=== PATIENT | male | born 1960 | race Caucasian/White ===

== ENCOUNTER → 2016-11-14 | Outpatient (CLI) | payer BC ==
[2016-11-14 15:50] LABS: ABSOLUTE BASOPHILS # (AUTO) 0.1 10^3/uL (0.0-0.2); ABSOLUTE EOSINOPHILS # (AUTO) 0.2 10^3/uL (0.0-0.6); ABSOLUTE LYMPHOCYTES (AUTO) 0.8 10^3/uL (0.5-4.7); ABSOLUTE MONOCYTES (AUTO) 0.5 10^3/uL (0.1-1.4); ABSOLUTE NEUT (AUTO) 3.4 10^3/uL (1.7-8.2); EOSINOPHILS % (AUTO) 3.3 % (0-6); HEMATOCRIT 31.3 % (37.9-51.0); HEMOGLOBIN 10.6 g/dL (13.5-17.0); HGB HCT DIFFERENCE 0.5; MEAN CORPUSCULAR HEMOGLOBIN 29.5 pg (27.0-33.4); MEAN CORPUSCULAR VOLUME 87 fl (80-97); MONOCYTES % (AUTO) 9.1 % (3-13); RED BLOOD COUNT 3.61 10^6/uL (4.35-5.55); RED CELL DISTRIBUTION WIDTH 12.9 % (11.5-14.0); SEGMENTED NEUTROPHILS % (AUTO) 68.6 % (42-78)
[2016-11-14 16:13] LABS: ANION GAP 12 (5-19); BLOOD UREA NITROGEN 41 mg/dL (7-20); CALCIUM 9.3 mg/dL (8.4-10.2); CARBON DIOXIDE 27 mmol/L (22-30); CHLORIDE 97 mmol/L (98-107); CREATININE RESULT 2.49 mg/dL (0.52-1.25); GLUCOSE 230 mg/dL (75-110); SODIUM 136.3 mmol/L (137-145)
[2016-11-16 11:40] LABS: CREATININE URINE 115.7 mg/dL (Not Estab.)
== END ==
LOC: OD 14:41
PROVIDERS: ATTEND Internal Medicine Nephrology
DX: N18.4 Chronic kidney disease, stage 4 (severe) (principal); D63.1 Anemia in chronic kidney disease; R80.9 Proteinuria, unspecified
CPT/HCPCS: 36415; 80048; 82570; 82728; 83036; 83540; 83550; 84156; 85025

== ENCOUNTER → 2017-01-05 | Outpatient (CLI) | payer BC ==
[2017-01-05 15:33] LABS: HEMATOCRIT 32.4 % (37.9-51.0); HEMOGLOBIN 10.9 g/dL (13.5-17.0); HGB HCT DIFFERENCE 0.3; MEAN CORPUSCULAR HGB CONC 33.6 g/dL (32.0-36.0); MEAN CORPUSCULAR VOLUME 89 fl (80-97); RED BLOOD COUNT 3.62 10^6/uL (4.35-5.55); RED CELL DISTRIBUTION WIDTH 14.1 % (11.5-14.0); WHITE BLOOD COUNT 4.5 10^3/uL (4.0-10.5)
== END ==
LOC: LAB 15:16
PROVIDERS: ATTEND Internal Medicine Nephrology
DX: N18.9 Chronic kidney disease, unspecified (principal)
CPT/HCPCS: 36415; 85027

== ENCOUNTER 2017-02-01 06:55 | Emergency (ER) | payer BC ==
[2017-02-01] MEDS ORDERED: DEXTROSE 50%-WATER 25 GM/50 ML DISP.SYRIN IV ONE ×2 (07:05→07:18)
--- NOTE | 2017-02-01 07:12 | ER Document Report ---
ED Blood Sugar Problem - General Mode of Arrival: Ambulatory Information source: Patient TRAVEL OUTSIDE OF THE [place] IN LAST 30 DAYS: No - HPI Onset: Just prior to arrival Onset/Duration: Persistent Insulin taken: Yes Associated symptoms: Confusion, Shakiness, Sweating Similar symptoms previously: Yes Recently seen / treated by doctor: Yes - General Stated Complaint: BLOOD SUGAR PROBLEMS Notes: Patient is a 56-year-old male that presents to the emergency department today with complaints of low blood glucose levels. Patient is well known to this emergency department for similar presentations of hypoglycemia. Patient states he was on his way to work today when he began feeling hypoglycemic. Patient states he took 17 units of NovoLog this morning without eating breakfast or checking his BGL. Patient states on his way to work, while riding in a taxi, he began feeling hypoglycemic and he ate a few three musketeer bars. Patient was brought to the emergency department by coworkers. Patient denies any chest pain , abdominal pain, vomiting, diarrhea, fevers, or cough. (MEGHNA MENDOZA) - Related Data Allergies/Adverse Reactions: No Known Allergies Allergy (Verified 02/17/16 18:00) Past Medical History - General Information source: Patient, [facility] Records - Social History Smoking Status: Never Smoker Cigarette use (# per day): No Frequency of alcohol use: None Drug Abuse: None Lives with: Family Family History: Reviewed & Not Pertinent - Past Medical History Cardiac Medical History: Reports: Hx Hypertension Endocrine Medical History: Reports: Hx Diabetes Mellitus Type 1 Renal/ Medical History: Reports: Hx End Stage Renal Disease - stage 3 Surgical Hx: Negative - Immunizations Hx Diphtheria, Pertussis, Tetanus Vaccination: No Review of Systems - Review of Systems Constitutional: See HPI, Other - low BGL EENT: No symptoms reported Cardiovascular: No symptoms reported Respiratory: No symptoms reported Gastrointestinal: No symptoms reported Genitourinary: No symptoms reported Male Genitourinary: No symptoms reported Musculoskeletal: No symptoms reported Skin: No symptoms reported Hematologic/Lymphatic: No symptoms reported Neurological/Psychological: See HPI, Confusion -: Yes All other systems reviewed and negative Physical Exam - Vital signs Vitals: Temp Pulse Resp BP Pulse Ox 97.5 F 91 20 172/94 H 100 02/01/17 07:42 02/01/17 07:42 02/01/17 07:42 02/01/17 07:42 02/01/17 07:42 - Notes Notes: Physical Exam: General: Confused, diaphoretic. HEENT: Normocephalic. Atraumatic. PERRL. Extraocular movements intact. Oropharynx clear. Neck: Supple. Non-tender. Respiratory: No respiratory distress. Clear and equal breath sounds bilaterally. Cardiovascular: Regular rate and rhythm. Abdominal: Normal Inspection. Non-tender. No distension. Normal Bowel Sounds. Back: Non-tender. No deformity or step off. Extremities: Moves all four extremities. Upper extremities: Normal inspection. Normal ROM. Lower extremities: Normal inspection. No edema. Normal ROM. Neurological: Confused, slightly slurred speech. Disoriented to date. Psychological: Unable to assess. Skin: Warm. Diaphoretic. Normal color. (MEGHNA MENDOZA) Course - Re-evaluation Re-evalutation: 02/01/17 08:10 Patient presented slightly confused with a blood sugar of 42. This patient is well-known to this emergency department for repeated visits for hypoglycemia. 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 The patient was given an amp of D50 normalized. He was able to tell us that he took a taxi to work this morning and that's when he started feeling lightheaded he ate 2 small Snickers. He said that he took 17 units of NovoLog this morning and had not checked his sugar nor had anything to eat. He reports this last happened about 2 weeks ago where he had come to the emergency department. Patient's clinical exam is largely unremarkable after the D50. He is requesting to leave without any workup. He reports this is happened multiple times before and he feels completely fine. His repeat blood sugar was 175. Patient is being discharged but has been counseled regarding checking his sugars and eating something prior to using his insulin in the morning. I have explained to patient that he was leaving without a complete period of observation and he acknowledged understanding and states that he just wants to get back to work. I have encouraged him to return to the ED for any reason or if any new or worrisome symptoms result. 02/01/17 17:19 (TRACE OSEI) - Vital Signs Vital signs: Temp Pulse Resp BP Pulse Ox 97.8 F 89 18 167/87 H 100 02/01/17 08:16 02/01/17 08:16 02/01/17 08:16 02/01/17 08:16 02/01/17 08:16 - Laboratory Laboratory results interpreted by me: 02/01/17 02/01/17 07:02 07:48 POC Glucose 42 L 175 H Discharge - Discharge Clinical Impression: Hypoglycemia Condition: Stable Disposition: HOME, SELF-CARE Instructions: Hypoglycemia ([facility]) Additional Instructions: You are requesting to leave the emergency department before we have had an appropriate period of time to evaluate you. Given that you have had multiple hypoglycemic episodes similar to this in the past, we are discharging you now, however should you have any recurrence of confusion, lightheadedness or any other new or worrisome symptoms, please return to emergency department immediately. It is extremely critical that you ensure you've have something to eat and check your blood sugar prior to taking insulin in the morning to avoid further episodes of hypoglycemia that result in an emergency department visit. Again, return at any time for any new or worrisome symptoms. Forms: Return to Work Referrals: RICHARD WHIPPLE MD [Primary Care Provider] - Follow up in 3-5 days Scribe Attestation: 02/01/17 07:58 I personally performed the services described in the documentation, reviewed and edited the documentation which was dictated to the scribe in my presence, and it accurately records my words and actions. (TRACE OSEI) Scribe Documentation - Scribe Written by Verónica:: Verónica Reynolds, 02/01/2017 0838 acting as scribe for :: Villareal
[2017-02-01 08:19] VITALS: BP 167/87
== END 2017-02-01 08:19 | disposition home or self-care (01) ==
LOC: ER 06:55
DX: E10.649 Type 1 diabetes mellitus with hypoglycemia without coma (principal); Z79.4 Long term (current) use of insulin; E10.22 Type 1 diabetes mellitus with diabetic chronic kidney disease; I12.9 Hypertensive chronic kidney disease with stage 1 through stage 4 chronic kidney disease, or unspecified chronic kidney disease; N18.3 Chronic kidney disease, stage 3 (moderate)
CPT/HCPCS: 99285; 96374; 82962; J3490

== ENCOUNTER → 2017-03-21 | Outpatient (CLI) | payer BC ==
[2017-03-21 15:11] LABS: ANION GAP 10 (5-19); BLOOD UREA NITROGEN 41 mg/dL (7-20); CALCIUM 8.9 mg/dL (8.4-10.2); CARBON DIOXIDE 27 mmol/L (22-30); CHLORIDE 98 mmol/L (98-107); CREATININE RESULT 2.81 mg/dL (0.52-1.25); GLUCOSE 135 mg/dL (75-110); POTASSIUM 5.2 mmol/L (3.6-5.0)
[2017-03-21 15:15] LABS: ABSOLUTE BASOPHILS # (AUTO) 0.1 10^3/uL (0.0-0.2); ABSOLUTE EOSINOPHILS # (AUTO) 0.1 10^3/uL (0.0-0.6); ABSOLUTE MONOCYTES (AUTO) 0.3 10^3/uL (0.1-1.4); ABSOLUTE NEUT (AUTO) 2.6 10^3/uL (1.7-8.2); BASOPHILS % (AUTO) 2.2 % (0-2); EOSINOPHILS % (AUTO) 3.2 % (0-6); HEMATOCRIT 33.3 % (37.9-51.0); HEMOGLOBIN 11.1 g/dL (13.5-17.0); LYMPHOCYTES % (AUTO) 23.4 % (13-45); MEAN CORPUSCULAR HEMOGLOBIN 29.7 pg (27.0-33.4); MEAN CORPUSCULAR HGB CONC 33.4 g/dL (32.0-36.0); MEAN CORPUSCULAR VOLUME 89 fl (80-97); MONOCYTES % (AUTO) 7.4 % (3-13); RED BLOOD COUNT 3.74 10^6/uL (4.35-5.55); RED CELL DISTRIBUTION WIDTH 13.7 % (11.5-14.0); SEGMENTED NEUTROPHILS % (AUTO) 63.8 % (42-78); WHITE BLOOD COUNT 4.1 10^3/uL (4.0-10.5)
[2017-03-21 15:40] LABS: URINE CREATININE 138.9 mg/dL (22-328); URINE PROTEIN 78.9 mg/dL (<12)
== END ==
LOC: LAB 14:37
PROVIDERS: ATTEND Internal Medicine Nephrology
DX: N18.4 Chronic kidney disease, stage 4 (severe) (principal); E10.9 Type 1 diabetes mellitus without complications; D63.1 Anemia in chronic kidney disease
CPT/HCPCS: 36415; 80048; 82570; 83036; 84156; 85025

== ENCOUNTER 2017-06-20 06:12 | Emergency (ER) | payer BC ==
[2017-06-20] MEDS ORDERED: DEXTROSE 50%-WATER 25 GM/50 ML DISP.SYRIN IV ONE ×2 (06:17→06:19)
--- NOTE | 2017-06-20 06:20 | ER Document Report ---
ED General - General Stated Complaint: BLOOD SUGAR PROBLEM Time Seen by Provider: 06/20/17 06:15 TRAVEL OUTSIDE OF THE [place] IN LAST 30 DAYS: No - HPI Patient complains to provider of: Hypoglycemia Notes: Patient coming in for evaluation of hypoglycemia. 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 Patient states took his Lantus this morning as he is supposed to patient states he did eat however patient was found by the kitchen staff to be slightly altered and diaphoretic patient was brought to the ER Accu-Chek showed patient blood sugar was 38. IV was established and patient was given an amp of dextrose. After administration that the patient feeling better and is requesting to go back to work. Denies any fever chills nausea vomiting denies any other symptoms at this time. - Related Data Allergies/Adverse Reactions: No Known Allergies Allergy (Verified 02/17/16 18:00) Past Medical History - Social History Smoking Status: Unknown if Ever Smoked Family History: Reviewed & Not Pertinent - Past Medical History Cardiac Medical History: Reports: Hx Hypertension Endocrine Medical History: Reports: Hx Diabetes Mellitus Type 1 Renal/ Medical History: Reports: Hx End Stage Renal Disease - stage 3 - Immunizations Hx Diphtheria, Pertussis, Tetanus Vaccination: No Review of Systems - Review of Systems Constitutional: Weakness EENT: No symptoms reported Cardiovascular: No symptoms reported Respiratory: No symptoms reported Gastrointestinal: No symptoms reported Genitourinary: No symptoms reported Male Genitourinary: No symptoms reported Musculoskeletal: No symptoms reported Skin: No symptoms reported Hematologic/Lymphatic: No symptoms reported Neurological/Psychological: No symptoms reported Physical Exam - Vital signs Interpretation: Normal - General General appearance: Appears well, Alert - HEENT Head: Normocephalic, Atraumatic Eyes: Normal Pupils: PERRL - Respiratory Respiratory status: No respiratory distress Chest status: Nontender Breath sounds: Normal Chest palpation: Normal - Cardiovascular Rhythm: Regular Heart sounds: Normal auscultation Murmur: No - Abdominal Inspection: Normal Distension: No distension Bowel sounds: Normal Tenderness: Nontender Organomegaly: No organomegaly - Back Back: Normal, Nontender - Extremities General upper extremity: Normal inspection, Nontender, Normal color, Normal ROM , Normal temperature General lower extremity: Normal inspection, Nontender, Normal color, Normal ROM , Normal temperature, Normal weight bearing. No: Julissa's sign - Neurological Neuro grossly intact: Yes Cognition: Normal Orientation: AAOx4 [place] Coma Scale Eye Opening: Spontaneous [place] Coma Scale Verbal: Oriented Farrah Coma Scale Motor: Obeys Commands [place] Coma Scale Total: 15 Speech: Normal Motor strength normal: LUE, RUE, LLE, RLE Sensory: Normal - Psychological Associated symptoms: Normal affect, Normal mood - Skin Skin Temperature: Warm Skin Moisture: Dry Skin Color: Normal Course - Re-evaluation Re-evalutation: 06/20/17 06:58 Patient was able to tolerate 2 glasses of orange juice and also received an amp of D50. Recheck the patient's blood sugar was 190. Patient did have a meal tray ordered from the cafeteria however patient is anxious to get back to work. Patient is supposed to eat his meal tray will return to cafeteria Accu-Chek showed blood sugar was 190 otherwise patient back to his baseline will discharge patient Discharge - Discharge Clinical Impression: Hypoglycemia Condition: Good Instructions: Hypoglycemia Diet ([facility]), Hypoglycemia ([facility]) Additional Instructions: Follow-up with your primary care physician
== END 2017-06-20 06:58 | disposition home or self-care (01) ==
LOC: ER 06:12
DX: E16.2 Hypoglycemia, unspecified (principal)
CPT/HCPCS: 99284; 96374; 82962; J3490

== ENCOUNTER → 2017-06-20 | Outpatient (CLI) | payer BC ==
[2017-06-20 08:57] LABS: ABSOLUTE BASOPHILS # (AUTO) 0.1 10^3/uL (0.0-0.2); ABSOLUTE EOSINOPHILS # (AUTO) 0.1 10^3/uL (0.0-0.6); ABSOLUTE LYMPHOCYTES (AUTO) 0.7 10^3/uL (0.5-4.7); ABSOLUTE MONOCYTES (AUTO) 0.3 10^3/uL (0.1-1.4); ABSOLUTE NEUT (AUTO) 3.8 10^3/uL (1.7-8.2); BASOPHILS % (AUTO) 1.7 % (0-2); EOSINOPHILS % (AUTO) 1.4 % (0-6); HEMATOCRIT 31.7 % (37.9-51.0); HGB HCT DIFFERENCE 1.3; LYMPHOCYTES % (AUTO) 14.8 % (13-45); MEAN CORPUSCULAR HEMOGLOBIN 30.8 pg (27.0-33.4); MEAN CORPUSCULAR HGB CONC 34.7 g/dL (32.0-36.0); MEAN CORPUSCULAR VOLUME 89 fl (80-97); MONOCYTES % (AUTO) 5.5 % (3-13); RED BLOOD COUNT 3.57 10^6/uL (4.35-5.55); RED CELL DISTRIBUTION WIDTH 13.5 % (11.5-14.0); SEGMENTED NEUTROPHILS % (AUTO) 76.6 % (42-78); WHITE BLOOD COUNT 4.9 10^3/uL (4.0-10.5)
[2017-06-20 09:13] LABS: ALBUMIN 4.2 g/dL (3.5-5.0); ANION GAP 9 (5-19); BLOOD UREA NITROGEN 41 mg/dL (7-20); CALCIUM 9.1 mg/dL (8.4-10.2); CARBON DIOXIDE 26 mmol/L (22-30); CHLORIDE 99 mmol/L (98-107); CREATININE RESULT 2.93 mg/dL (0.52-1.25); GLUCOSE 202 mg/dL (75-110); PHOSPHORUS 4.4 mg/dL (2.5-4.5); POTASSIUM 5.1 mmol/L (3.6-5.0); SODIUM 134.3 mmol/L (137-145)
[2017-06-20 09:22] LABS: URINE CREATININE 129.3 mg/dL (22-328); URINE PROTEIN 113.8 mg/dL (<12)
[2017-06-20 09:44] LABS: THYROID STIMULATING HORMONE 1.3 uIU/mL (0.47-4.68)
[2017-06-21 07:20] LABS: VITAMIN D 25-HYDROXY 21.7 ng/mL (30.0-100.0)
== END ==
LOC: LAB 08:21
PROVIDERS: ATTEND Internal Medicine Nephrology
DX: N18.4 Chronic kidney disease, stage 4 (severe) (principal); E10.9 Type 1 diabetes mellitus without complications; D63.1 Anemia in chronic kidney disease; N25.81 Secondary hyperparathyroidism of renal origin
CPT/HCPCS: 36415; 80048; 82040; 82306; 82570; 82728; 83036; 83540; 83550; 83970; 84100; 84156; 84439; 84443; 85025

== ENCOUNTER 2017-06-22 07:59 | Emergency (ER) | payer BC ==
--- NOTE | 2017-06-22 08:15 | ER Document Report ---
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 He has frequent episodes of hypoglycemia in the morning. He said that when he left for work this morning his sugar was 300 and he did not take any insulin today. His last Lantus dose was 15 units about 20 hours ago. He did not take any of his sliding scale Humalog yesterday or today. Patient was given food on arrival to the emergency room and is having no complaints at this time. He said that his sugars are difficult to control. Patient denies chest pain, shortness of breath, nausea, vomiting, focal numbness , weakness, headache or ataxia. TRAVEL OUTSIDE OF THE [place] IN LAST 30 DAYS: No - Related Data Allergies/Adverse Reactions: No Known Allergies Allergy (Verified 02/17/16 18:00) Past Medical History - General Information source: Patient - Social History Smoking Status: Current Every Day Smoker Chew tobacco use (# tins/day): No Frequency of alcohol use: None Drug Abuse: None Family History: Reviewed & Not Pertinent Patient has suicidal ideation: No Patient has homicidal ideation: No - Past Medical History Cardiac Medical History: Reports: Hx Hypertension Endocrine Medical History: Reports: Hx Diabetes Mellitus Type 1 Renal/ Medical History: Reports: Hx End Stage Renal Disease - stage 3. Denies : Hx Peritoneal Dialysis Surgical Hx: Negative - Immunizations Hx Diphtheria, Pertussis, Tetanus Vaccination: No Review of Systems - Review of Systems Notes: REVIEW OF SYSTEMS: CONSTITUTIONAL: -fevers, -chills EENT: -eye pain, -difficulty swallowing, -nasal congestion CARDIOVASCULAR:-chest pain, -syncope. RESPIRATORY: -cough, -SOB GASTROINTESTINAL: -abdominal pain, - nausea, -vomiting, -diarrhea GENITOURINARY: -dysuria, -hematuria MUSCULOSKELETAL: -back pain, -neck pain SKIN: -rash or skin lesions. HEMATOLOGIC: -easy bruising or bleeding. LYMPHATIC: -swollen, enlarged glands. NEUROLOGICAL: -altered mental status or loss of consciousness, -headache, - neurologic symptoms PSYCHIATRIC: -anxiety, -depression. ALL OTHER SYSTEMS REVIEWED AND NEGATIVE. Physical Exam - Vital signs Vitals: Pulse Resp BP Pulse Ox 76 20 193/88 H 100 06/22/17 08:07 06/22/17 08:07 06/22/17 08:07 06/22/17 08:07 - Notes Notes: PHYSICAL EXAMINATION: GENERAL: Well-appearing, well-nourished and in no acute distress. HEAD: Atraumatic, normocephalic. EYES: Pupils equal round and reactive to light, extraocular movements intact, sclera anicteric, conjunctiva are normal. ENT: nares patent, oropharynx clear without exudates. Moist mucous membranes. NECK: Normal range of motion, supple without lymphadenopathy LUNGS: Breath sounds clear to auscultation bilaterally and equal. No wheezes rales or rhonchi. HEART: Regular rate and rhythm without murmurs ABDOMEN: Soft, nontender, normoactive bowel sounds. No guarding, no rebound. No masses appreciated. EXTREMITIES: Normal range of motion, no pitting or edema. No cyanosis. NEUROLOGICAL: Cranial nerves grossly intact. Normal speech, normal gait. Normal sensory and motor exams. PSYCH: Normal mood, normal affect. SKIN: Warm, Dry, normal turgor, no rashes or lesions noted. Course - Re-evaluation Re-evalutation: Patient appears well and is AAO 4. He drank and ate food in the emergency room today and feels much better. He does not want to have his kidney function checked and is refusing as IV. 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 Patient said that his res counselor, Dr. Whipple, follows him for the diabetes and he will call her today for an appointment. Given strict return precautions and he understands. - Vital Signs Vital signs: Temp Pulse Resp BP Pulse Ox 76 20 193/88 H 100 06/22/17 08:07 06/22/17 08:07 06/22/17 08:07 06/22/17 08:07 Discharge - Discharge Clinical Impression: Hypoglycemia Hypertension Qualifiers: Hypertension type: unspecified Qualified Code(s): I10 - Essential (primary) hypertension Condition: Stable Additional Instructions: Hypoglycemia You have suffered an episode of hypoglycemia (low blood sugar). Typical symptoms of hypoglycemia are shaking, sweating, headache, and confusion. When severe, unconsciousness or seizure may occur. Hypoglycemia occurs when a person taking insulin or diabetes pills has a change in the amount of blood sugar available -- due to exercise, decreased food intake, or alcohol. Should you feel symptoms of hypoglycemia again, immediately take some form of sugar such as sweetened juice. As the reaction subsides, eat a complex carbohydrate such as bread. If possible, check your blood sugar using a chemical strip. If episodes are occurring without obvious explanation, contact your physician for further evaluation. Hypoglycemia Diet The physician has recommended a special diet for hypoglycemia. The goal of this diet is to keep a steady supply of food energy, without sudden jumps in blood sugar. Divide your daily calories into six small meals. Meals should be high in complex carbohydrates -- starchy foods. Avoid fats. Eat plenty of vegetables. Include protein from both plants (beans, peas) and animals (skim milk, fish, poultry). Plan for a small high-protein bedtime snack. Eat slowly and chew thoroughly. Avoid any foods which put a lot of sugar into your system suddenly. Drink water rather than large glasses of fruit juice. Don't drink sugar-containing soda pop, and NO CANDY. Slightly-sweet natural foods, such as sweet potato, apples, bananas, and carrots, usually cause no problems. Ketogenic diet, general information: The ketogenic diet is sometimes useful in children with intractable epilepsy (seizures that can't be controlled with medicine). The diet is high in fat, causing ketones and acids to build up in the blood stream. Combined with restriction of total calories, this mimics the effects of starvation. Somehow this helps prevent seizures in some patients. We don't recommend it as a replacement for anti-seizure medicine, but only when these medicines are failing. The ketogenic diet is complicated, and hard to coordinate with other family member's diets. There are potential complications, such as kidney stones , hypoglycemia, weakness, and muscle atrophy. Because of the difficulty " getting it right," we often start the diet in the hospital under the supervision of a fitness assistant. The usual ketogenic diet gets 80% of its calories from fat. The amount of fat may be varied depending on the child's response to the diet. (The proportion of fat to protein plus carbs is called the "ketogenic ratio." A diet that's 80% fat has a 4:1 ketogenic ratio.) Total calories per day are limited to 75% of the recommended calories for the child's age and IDEAL weight. Water intake is restricted to somewhat less than the usual "maintenance amount" -- about 3/4 of the recommended water intake. The diet generally avoids carbohydrates in order to get the child's Recommended Daily Allowance (LONG LINE TEAMSTER) of protein. A multivitamin and calcium supplement should be given daily. Urine is checked daily with ketone test-strips. Ketogenic diet, protocol: 1. Weigh the child in kilograms 2. Calculate total daily calories Under 1 yr: 80 Calories times weight in kg = total calories 1-3 yrs: 75 Calories times weight in kg = total calories 4-6 yrs: 68 Calories times weight in kg = total calories 7-10 yrs: 60 Calories times weight in kg = total calories 11 and up: 40-50 Calories times weight in kg = total calories 3. Calculate number of daily "dietary units" based on ketogenic ratio 2:1 ketogenic ratio: total daily calories divided by 22 = dietary units per day 3:1 ketogenic ratio: total daily calories divided by 31 = dietary units per day 4:1 ketogenic ratio: total daily calories divided by 40 = dietary units per day 5:1 ketogenic ratio: total daily calories divided by 49 = dietary units per day 4. Calculate grams of daily fat based on recommended ketogenic ratio 2:1 ketogenic ratio: 2 times number of dietary units = grams of fat per day 3:1 ketogenic ratio: 3 times number of dietary units = grams of fat per day 4:1 ketogenic ratio: 4 times number of dietary units = grams of fat per day 5:1 ketogenic ratio: 5 times number of dietary units = grams of fat per day 5. Get protein Recommended Daily Allowance (LONG LINE TEAMSTER) in grams age 0-6 months: 2 times weight in kg = grams of protein per day age 6-12 months: 1.5 times weight in kg = grams of protein per day age 1-3 years: 1.25 times weight in kg = grams of protein per day age 4 or older: 1 times weight in kg = grams of protein per day 6. Calculate allowed carbohydrate Dietary units per day minus protein allowance (LONG LINE TEAMSTER) = grams of carbohydrate per day 7. Divide total daily allowances into individual meals, keeping same ratio of fat to protein and carbohydrates. 8. Determine amount of allowed daily fluids. Weight less than 10 k/4 times weight in kg times 4 ml/hour times 24 hours = ml fluids per day Weight 10-20 k ml plus 3/4 times (weight - 10 kg) times 2 ml/hour times 24 hours = ml/day Weight over 20 k ml plus 3/4 times (weight - 20 kg) times 1 ml/ hour times 24 hours = ml/day 9. Add calcium supplement and multivitamin. Forms: Elevated Blood Pressure Referrals: RICHARD WHIPPLE MD [ACTIVE STAFF] - Follow up as needed
[2017-06-22] MEDS ORDERED: DEXTROSE 40% GEL 15 GM TUBE PO PRN (08:29)
[2017-06-22 09:02] VITALS: BP 145/80
== END 2017-06-22 09:05 | disposition home or self-care (01) ==
LOC: ER 07:59
DX: E10.649 Type 1 diabetes mellitus with hypoglycemia without coma (principal); I12.9 Hypertensive chronic kidney disease with stage 1 through stage 4 chronic kidney disease, or unspecified chronic kidney disease; E10.22 Type 1 diabetes mellitus with diabetic chronic kidney disease; N18.4 Chronic kidney disease, stage 4 (severe); F17.200 Nicotine dependence, unspecified, uncomplicated
CPT/HCPCS: 82962; 99285

== ENCOUNTER → 2017-07-25 | Outpatient (CLI) | payer BC, MEDICAID ==
[2017-07-25 22:12] LABS: HEMATOCRIT 30.3 % (37.9-51.0); HEMOGLOBIN 10.6 g/dL (13.5-17.0); HGB HCT DIFFERENCE 1.5; MEAN CORPUSCULAR HEMOGLOBIN 30.3 pg (27.0-33.4); MEAN CORPUSCULAR HGB CONC 34.8 g/dL (32.0-36.0); MEAN CORPUSCULAR VOLUME 87 fl (80-97); RED BLOOD COUNT 3.49 10^6/uL (4.35-5.55); RED CELL DISTRIBUTION WIDTH 13.5 % (11.5-14.0)
== END ==
LOC: OD 18:19
PROVIDERS: ATTEND Internal Medicine Nephrology
DX: N18.9 Chronic kidney disease, unspecified (principal)
CPT/HCPCS: 36415; 85027

== ENCOUNTER 2017-07-29 19:02 | Emergency (ER) | payer BC ==
[2017-07-29] MEDS ORDERED: DEXTROSE 50%-WATER 25 GM/50 ML DISP.SYRIN IV ONE (19:07)
--- NOTE | 2017-07-29 19:31 | ER Document Report ---
ED Blood Sugar Problem - General Chief Complaint: Low Blood Sugar Stated Complaint: BLOOD PRESSURE ISSUE Time Seen by Provider: 07/29/17 19:29 Notes: Patient is an insulin-dependent diabetic whose blood sugar is low. 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 He says he ate a turkey club sandwich and was just finishing it when he began to feel confused and became combative. He was given 50 mL of glucose IV and within a couple minutes he began to come around and answer questions appropriately. Patient says that he reports a 10 hour shift today instead of his usual 8 hours. Did eat, as mentioned the turkey club. However, during his episode, his blood sugar was checked and it was just 33. Patient normally takes 100 units of Lantus at bedtime and a sliding scale during the day. TRAVEL OUTSIDE OF THE [place] IN LAST 30 DAYS: No - Related Data Allergies/Adverse Reactions: No Known Allergies Allergy (Verified 02/17/16 18:00) Past Medical History - Social History Smoking Status: Unknown if Ever Smoked Chew tobacco use (# tins/day): No Frequency of alcohol use: None Drug Abuse: None Family History: Reviewed & Not Pertinent Patient has suicidal ideation: No Patient has homicidal ideation: No - Past Medical History Cardiac Medical History: Reports: Hx Hypertension Endocrine Medical History: Reports: Hx Diabetes Mellitus Type 1 Renal/ Medical History: Reports: Hx End Stage Renal Disease - stage 3 Surgical Hx: Negative - Immunizations Hx Diphtheria, Pertussis, Tetanus Vaccination: No Review of Systems - Review of Systems Constitutional: denies: Fever Cardiovascular: denies: Chest pain Respiratory: denies: Cough, Short of breath, Wheezing Physical Exam - Vital signs Vitals: Temp Pulse Resp BP Pulse Ox 97.8 F 91 16 188/96 H 100 07/29/17 19:10 07/29/17 19:10 07/29/17 19:10 07/29/17 19:10 07/29/17 19:10 Interpretation: Normal, Hypertensive - Mild - Notes Notes: PHYSICAL EXAMINATION: GENERAL: Combative and difficult to control and had to be held down by security to receive his IV glucose. After that, he awakened and was well-appearing, in no acute distress. HEAD: Atraumatic, normocephalic. EYES: Pupils equal round and reactive to light, extraocular movements intact. ENT: oropharynx clear without exudates. Moist mucous membranes. NECK: Normal range of motion, supple. LUNGS: Breath sounds clear and equal bilaterally. HEART: Regular rate and rhythm without murmurs. ABDOMEN: Soft, nontender. No guarding or rebound. EXTREMITIES: Normal range of motion without pain. NEUROLOGICAL: Normal speech, normal gait. Normal sensory, motor, and reflex exams. Awake, alert, and oriented x3. Cranial nerves normal. SKIN: Warm, dry, no rashes. Course - Vital Signs Vital signs: Temp Pulse Resp BP Pulse Ox 97.8 F 91 20 188/96 H 100 07/29/17 19:10 07/29/17 19:10 07/29/17 19:10 07/29/17 19:10 07/29/17 19:10 Discharge - Discharge Clinical Impression: Hypoglycemia Condition: Stable Disposition: HOME, SELF-CARE Additional Instructions: Hypoglycemia You have suffered an episode of hypoglycemia (low blood sugar). Typical symptoms of hypoglycemia are shaking, sweating, headache, and confusion. When severe, unconsciousness or seizure may occur. Hypoglycemia occurs when a person taking insulin or diabetes pills has a change in the amount of blood sugar available -- due to exercise, decreased food intake, or alcohol. Should you feel symptoms of hypoglycemia again, immediately take some form of sugar such as sweetened juice. As the reaction subsides, eat a complex carbohydrate such as bread. If possible, check your blood sugar using a chemical strip. If episodes are occurring without obvious explanation, contact your physician for further evaluation. FOLLOW-UP CARE: If you have been referred to a physician for follow-up care, call the physician s office for an appointment as you were instructed or within the next two days. If you experience worsening or a significant change in your symptoms, notify the physician immediately or return to the Emergency Department at any time for re-evaluation. Referrals: RICHARD WHIPPLE MD [Primary Care Provider] - Follow up as needed
[2017-07-29 19:42] VITALS: BP 188/96
== END 2017-07-29 19:46 | disposition home or self-care (01) ==
LOC: ER 19:02
DX: E10.649 Type 1 diabetes mellitus with hypoglycemia without coma (principal); Z79.4 Long term (current) use of insulin; E10.22 Type 1 diabetes mellitus with diabetic chronic kidney disease; I12.0 Hypertensive chronic kidney disease with stage 5 chronic kidney disease or end stage renal disease; N18.6 End stage renal disease
CPT/HCPCS: 99283; 96374; 82962; J3490

== ENCOUNTER → 2017-08-13 | Outpatient (CLI) | payer BC ==
[2017-08-13 14:40] LABS: HEMATOCRIT 29.9 % (37.9-51.0); HEMOGLOBIN 10.4 g/dL (13.5-17.0); HGB HCT DIFFERENCE 1.3; MEAN CORPUSCULAR HEMOGLOBIN 30.3 pg (27.0-33.4); MEAN CORPUSCULAR HGB CONC 34.8 g/dL (32.0-36.0); MEAN CORPUSCULAR VOLUME 87 fl (80-97); RED BLOOD COUNT 3.45 10^6/uL (4.35-5.55); RED CELL DISTRIBUTION WIDTH 13.4 % (11.5-14.0); WHITE BLOOD COUNT 5.6 10^3/uL (4.0-10.5)
== END ==
LOC: LAB 14:26
PROVIDERS: ATTEND Internal Medicine Nephrology
DX: N18.4 Chronic kidney disease, stage 4 (severe) (principal); D63.1 Anemia in chronic kidney disease
CPT/HCPCS: 36415; 84132; 85027

== ENCOUNTER 2017-09-19 08:44 | Emergency (ER) | payer BC ==
[2017-09-19 08:56] VITALS: BP 190/87
--- NOTE | 2017-09-19 09:03 | ER Document Report ---
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 He has frequent episodes of hypoglycemia in the morning when his Latnus is ineffect prior to eating his breakfast. His last Lantus dose was 15 units last evening. He did not take any of his sliding scale Humalog yesterday or today. Patient was given food on arrival to the emergency room and is having no complaints at this time. He states he ahs had issues with hypoglycemia frequently. Patient denies chest pain, shortness of breath, nausea, vomiting, focal numbness, weakness, headache or ataxia. TRAVEL OUTSIDE OF THE [place] IN LAST 30 DAYS: No - Related Data Allergies/Adverse Reactions: No Known Allergies Allergy (Verified 02/17/16 18:00) Past Medical History - Social History Smoking Status: Current Every Day Smoker Family History: Reviewed & Not Pertinent - Past Medical History Cardiac Medical History: Reports: Hx Hypertension Endocrine Medical History: Reports: Hx Diabetes Mellitus Type 1 Renal/ Medical History: Reports: Hx End Stage Renal Disease - stage 3. Denies : Hx Peritoneal Dialysis - Immunizations Hx Diphtheria, Pertussis, Tetanus Vaccination: No Review of Systems - Review of Systems Constitutional: No symptoms reported EENT: No symptoms reported Cardiovascular: No symptoms reported Respiratory: No symptoms reported Gastrointestinal: See HPI -: Yes All other systems reviewed and negative Physical Exam - Vital signs Vitals: Temp Pulse Resp BP Pulse Ox 98.0 F 85 18 190/87 H 100 09/19/17 08:55 09/19/17 08:55 09/19/17 08:55 09/19/17 08:55 09/19/17 08:55 - Notes Notes: PHYSICAL EXAM GENERAL: Alert, interacts well. HEAD: Normocephalic, atraumatic. EYES: Pupils equal, round, and reactive to light. Extraocular movements intact. ENT: Oral mucosa moist, tongue midline. NECK: Full range of motion. Supple. Trachea midline. LUNGS: Clear to auscultation bilaterally, no wheezes, rales, or rhonchi. No respiratory distress. HEART: Regular rate and rhythm. No murmurs, gallops, or rubs. ABDOMEN: Soft, nondistended, nontender. No guarding, rebound, or rigidity.. Bowel sounds present in all 4 quadrants. EXTREMITIES: Moves all 4 extremities spontaneously. No edema, radial and dorsalis pedis pulses 2/4 bilaterally. No cyanosis. NEUROLOGICAL: Alert and oriented x4. Normal speech. PSYCH: Normal affect, normal mood. SKIN: Warm, dry, normal turgor. No rashes or lesions noted. Course - Re-evaluation Re-evalutation: 09/19/17 9:00 Patient is a 57-year-old male who is hemodynamically stable, no acute distress and afebrile. Accu-Chek here was 73. patient appears well and is AAO 4. He drank and ate food in the emergency room today and feels much better. He is declining labs and is refusing as IV. 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 Whipple, follows him for the diabetes and he will call her today for an appointment. Given strict return precautions and he understands. - Vital Signs Vital signs: Temp Pulse Resp BP Pulse Ox 98.0 F 85 18 190/87 H 100 09/19/17 08:55 09/19/17 08:58 09/19/17 08:55 09/19/17 08:55 09/19/17 08:55 Discharge - Discharge Clinical Impression: Hypoglycemia Condition: Good Disposition: HOME, SELF-CARE Instructions: Hypoglycemia ([facility]) Additional Instructions: Please follow-up with Dr. Whipple regarding her visit today to discuss your current medication doses. Otherwise please return to the emergency department for any return of symptoms, lightheadedness, nausea, vomiting or any symptoms that are worrisome to you Forms: Return to Work Referrals: RICHARD WHIPPLE MD [Primary Care Provider] - Follow up as needed
== END 2017-09-19 09:06 | disposition home or self-care (01) ==
LOC: ER 08:44
DX: E10.649 Type 1 diabetes mellitus with hypoglycemia without coma (principal); I10 Essential (primary) hypertension; R42 Dizziness and giddiness; F17.200 Nicotine dependence, unspecified, uncomplicated
CPT/HCPCS: 82962; 99284

== ENCOUNTER → 2017-09-26 | Outpatient (CLI) | payer BC ==
[2017-09-26 10:45] LABS: ABSOLUTE BASOPHILS # (AUTO) 0.1 10^3/uL (0.0-0.2); ABSOLUTE EOSINOPHILS # (AUTO) 0.1 10^3/uL (0.0-0.6); ABSOLUTE MONOCYTES (AUTO) 0.4 10^3/uL (0.1-1.4); ABSOLUTE NEUT (AUTO) 4.2 10^3/uL (1.7-8.2); EOSINOPHILS % (AUTO) 1.7 % (0-6); HEMATOCRIT 32.4 % (37.9-51.0); HEMOGLOBIN 11.3 g/dL (13.5-17.0); HGB HCT DIFFERENCE 1.5; LYMPHOCYTES % (AUTO) 16.6 % (13-45); MEAN CORPUSCULAR HGB CONC 34.8 g/dL (32.0-36.0); MEAN CORPUSCULAR VOLUME 86 fl (80-97); MONOCYTES % (AUTO) 6.7 % (3-13); RED BLOOD COUNT 3.76 10^6/uL (4.35-5.55); RED CELL DISTRIBUTION WIDTH 13.9 % (11.5-14.0); WHITE BLOOD COUNT 5.8 10^3/uL (4.0-10.5)
[2017-09-26 11:04] LABS: ANION GAP 14 (5-19); BLOOD UREA NITROGEN 41 mg/dL (7-20); CALCIUM 9.5 mg/dL (8.4-10.2); CARBON DIOXIDE 24 mmol/L (22-30); CHLORIDE 106 mmol/L (98-107); CREATININE RESULT 2.84 mg/dL (0.52-1.25); GLUCOSE 107 mg/dL (75-110); POTASSIUM 4.8 mmol/L (3.6-5.0); SODIUM 144.1 mmol/L (137-145)
[2017-09-26 11:14] LABS: URINE CREATININE 94.8 mg/dL (22-328)
== END ==
LOC: LAB 10:12
PROVIDERS: ATTEND Internal Medicine Nephrology
DX: N18.4 Chronic kidney disease, stage 4 (severe) (principal); E11.21 Type 2 diabetes mellitus with diabetic nephropathy; N25.81 Secondary hyperparathyroidism of renal origin; E55.9 Vitamin D deficiency, unspecified
CPT/HCPCS: 36415; 80048; 82306; 82570; 83036; 83970; 84156; 85025

== ENCOUNTER → 2018-01-08 | Outpatient (CLI) | payer BC ==
[2018-01-08 12:27] LABS: ABSOLUTE BASOPHILS # (AUTO) 0.1 10^3/uL (0.0-0.2); ABSOLUTE EOSINOPHILS # (AUTO) 0.1 10^3/uL (0.0-0.6); ABSOLUTE MONOCYTES (AUTO) 0.3 10^3/uL (0.1-1.4); ABSOLUTE NEUT (AUTO) 2.8 10^3/uL (1.7-8.2); BASOPHILS % (AUTO) 2.1 % (0-2); EOSINOPHILS % (AUTO) 3.4 % (0-6); HEMATOCRIT 29.6 % (37.9-51.0); LYMPHOCYTES % (AUTO) 23.2 % (13-45); MEAN CORPUSCULAR HEMOGLOBIN 29.4 pg (27.0-33.4); MEAN CORPUSCULAR HGB CONC 33.9 g/dL (32.0-36.0); MEAN CORPUSCULAR VOLUME 87 fl (80-97); MONOCYTES % (AUTO) 7.7 % (3-13); PLATELET COUNT 191 10^3/uL (150-450); RED BLOOD COUNT 3.41 10^6/uL (4.35-5.55); RED CELL DISTRIBUTION WIDTH 13.8 % (11.5-14.0); SEGMENTED NEUTROPHILS % (AUTO) 63.6 % (42-78); TOTAL CELLS COUNTED % (AUTO) 100 %; WHITE BLOOD COUNT 4.4 10^3/uL (4.0-10.5)
[2018-01-08 12:53] LABS: ANION GAP 12 (5-19); BLOOD UREA NITROGEN 61 mg/dL (7-20); CALCIUM 9.3 mg/dL (8.4-10.2); CARBON DIOXIDE 21 mmol/L (22-30); CHLORIDE 102 mmol/L (98-107); GLUCOSE 211 mg/dL (75-110); POTASSIUM 5.2 mmol/L (3.6-5.0); SODIUM 135.3 mmol/L (137-145)
[2018-01-08 13:10] LABS: UR PRO/CREAT RATIO RESULT 0.6 mg/mg (0.0-0.2); URINE PROTEIN 82.5 mg/dL (<12)
== END ==
LOC: LAB 12:08
PROVIDERS: ATTEND Internal Medicine Nephrology
DX: N18.4 Chronic kidney disease, stage 4 (severe) (principal); E10.9 Type 1 diabetes mellitus without complications; D63.1 Anemia in chronic kidney disease
CPT/HCPCS: 36415; 80048; 82570; 83036; 84156; 85025

== ENCOUNTER → 2018-01-15 | Outpatient (CLI) | payer BC ==
[2018-01-15 15:29] LABS: APPEARANCE,URINE CLEAR; BILIRUBIN,URINE NEGATIVE (NEGATIVE); COLOR,URINE YELLOW; GLUCOSE, URINE NEGATIVE (NEGATIVE); KETONES,URINE NEGATIVE (NEGATIVE); LEUKOCYTE ESTERASE,URINE NEGATIVE (NEGATIVE); NITRITE,URINE NEGATIVE (NEGATIVE); PROTEIN,URINE 100 mg/dL (NEGATIVE); URINE SPECIFIC GRAVITY 1.014
[2018-01-15 15:39] LABS: ALBUMIN 4.2 g/dL (3.5-5.0); PHOSPHORUS 6.1 mg/dL (2.5-4.5)
[2018-01-15 15:46] LABS: URINE AMPHETAMINES SCREEN NEGATIVE; URINE BARBITURATES SCREEN NEGATIVE; URINE BENZODIAZEPINES SCREEN NEGATIVE; URINE COCAINE SCREEN NEGATIVE; URINE MARIJUANA (THC) SCREEN NEGATIVE; URINE METHADONE SCREEN NEGATIVE; URINE PHENCYCLIDINE SCREEN NEGATIVE
== END ==
LOC: LAB 13:29
PROVIDERS: ATTEND Internal Medicine Nephrology
DX: N18.4 Chronic kidney disease, stage 4 (severe) (principal); E11.21 Type 2 diabetes mellitus with diabetic nephropathy; N25.81 Secondary hyperparathyroidism of renal origin; D63.1 Anemia in chronic kidney disease; E55.9 Vitamin D deficiency, unspecified; R69 Illness, unspecified; M47.812 Spondylosis without myelopathy or radiculopathy, cervical region
CPT/HCPCS: 36415; 80307; 81001; 82040; 82306; 83970; 84100

== ENCOUNTER 2018-04-17 09:23 | Emergency (ER) | payer OTHER, BC ==
--- NOTE | 2018-04-17 11:19 | ER Document Report ---
ED General - General TRAVEL OUTSIDE OF THE [place] IN LAST 30 DAYS: No <POLY MANUEL - Last Filed: 04/17/18 12:08> - General TRAVEL OUTSIDE OF THE [place] IN LAST 30 DAYS: Yes - HPI Onset: Just prior to arrival Onset/Duration: Sudden Quality of pain: Sharp Associated symptoms: None Exacerbated by: Movement Relieved by: Denies Similar symptoms previously: Yes Recently seen / treated by doctor: No <ALONZO CORTEZ - Last Filed: 04/17/18 13:05> - General Chief Complaint: Neck Problem Stated Complaint: NECK PAIN Time Seen by Provider: 04/17/18 11:18 Notes: Patient is a 57-year-old male with a history of a herniated cervical disc and stage IV renal disease presents to the emergency department complaining of left neck pain. 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 States that while he was lifting a 50 pound bag of onions in the kitchen he felt a pop to the left side of his neck. He is having left neck pain with some left arm radiculopathy. (ALONZO CORTEZ) - Related Data Allergies/Adverse Reactions: No Known Allergies Allergy (Verified 02/17/16 18:00) Past Medical History - Social History Smoking Status: Never Smoker Chew tobacco use (# tins/day): No Frequency of alcohol use: Occasional Drug Abuse: None Family History: Reviewed & Not Pertinent Patient has suicidal ideation: No Patient has homicidal ideation: No - Past Medical History Cardiac Medical History: Reports: Hx Hypertension Endocrine Medical History: Reports: Hx Diabetes Mellitus Type 1, Hx Diabetes Mellitus Type 2 Renal/ Medical History: Reports: Hx End Stage Renal Disease - stage 4. Denies : Hx Peritoneal Dialysis - Immunizations Hx Diphtheria, Pertussis, Tetanus Vaccination: No <POLY MANUEL - Last Filed: 04/17/18 12:08> - General Information source: Patient - Social History Smoking Status: Former Smoker Family History: Reviewed & Not Pertinent <ALONZO CORTEZ - Last Filed: 04/17/18 13:05> Review of Systems - Review of Systems Constitutional: No symptoms reported EENT: No symptoms reported Cardiovascular: No symptoms reported Respiratory: No symptoms reported Gastrointestinal: No symptoms reported Genitourinary: No symptoms reported Male Genitourinary: No symptoms reported Musculoskeletal: See HPI Skin: No symptoms reported Hematologic/Lymphatic: No symptoms reported Neurological/Psychological: No symptoms reported <ALONZO CORTEZ - Last Filed: 04/17/18 13:05> Physical Exam - Vital signs Interpretation: Normal - General General appearance: Appears well, Alert - HEENT Head: Normocephalic, Atraumatic Eyes: Normal Pupils: PERRL Mucous membranes: Normal Neck: Supple - No cervical tenderness. Positive focal tenderness left trapezius muscle - Respiratory Respiratory status: No respiratory distress Chest status: Nontender Breath sounds: Normal Chest palpation: Normal - Cardiovascular Rhythm: Regular Heart sounds: Normal auscultation Murmur: No - Abdominal Inspection: Normal Distension: No distension Bowel sounds: Normal Tenderness: Nontender Organomegaly: No organomegaly - Back Back: Normal, Nontender - Extremities General upper extremity: Normal inspection, Nontender, Normal color, Normal ROM , Normal temperature General lower extremity: Normal inspection, Nontender, Normal color, Normal ROM , Normal temperature, Normal weight bearing. No: Julissa's sign - Neurological Neuro grossly intact: Yes Cognition: Normal Orientation: AAOx4 Farrah Coma Scale Eye Opening: Spontaneous [place] Coma Scale Verbal: Oriented Farrah Coma Scale Motor: Obeys Commands [place] Coma Scale Total: 15 Speech: Normal Motor strength normal: LUE, RUE, LLE, RLE Sensory: Normal - Psychological Associated symptoms: Normal affect, Normal mood - Skin Skin Temperature: Warm Skin Moisture: Dry Skin Color: Normal <ALONZO CORTEZ - Last Filed: 04/17/18 13:05> - Vital signs Vitals: Temp Pulse Resp BP Pulse Ox 98.1 F 82 16 94/54 L 100 04/17/18 09:37 04/17/18 09:37 04/17/18 09:37 04/17/18 09:37 04/17/18 09:37 - Re-evaluation Re-evalutation: 04/17/18 12:08 bs 348 (POLY MANUEL) - Vital Signs Vital signs: Temp Pulse Resp BP Pulse Ox 98.1 F 82 16 94/54 L 100 04/17/18 09:37 04/17/18 09:37 04/17/18 09:37 04/17/18 09:37 04/17/18 09:37 - Laboratory Laboratory results interpreted by me: 04/17/18 12:04 POC Glucose 348 H Discharge <POLY MANUEL - Last Filed: 04/17/18 12:08> <ALONZO CORTEZ - Last Filed: 04/17/18 13:05> - Discharge Clinical Impression: Chronic neck pain Trapezius muscle strain Qualifiers: Encounter type: initial encounter Laterality: left Qualified Code(s): S46.812A - Strain of other muscles, fascia and tendons at shoulder and upper arm level, left arm, initial encounter Condition: Stable Disposition: HOME, SELF-CARE Instructions: Acetaminophen, Muscle Strain ([facility]), Oral Narcotic Medication ([facility] ) Additional Instructions: Do not drive, drink alcohol or operate heavy machinery while taking [place] and Flexeril as it can cause sedation. Alternate between applying ice 20 minutes on 20 minutes off and heat 20 minutes on 20 minutes off several times a day, switch to just heat after 2 days. Take [place] only with severe pain. Follow-up with primary care provider and practice specialist within 3-4 days. If symptoms become worse such develop weakness, loss of sensation, chest pain, shortness of breath, have worsening of your symptoms, or any other symptoms that are worrisome to you. Follow up with primary care provider, call tomorrow to make followup appointment. Prescriptions: Cyclobenzaprine HCl [Flexeril 10 mg Tablet] 10 mg PO TIDP PRN #9 tab PRN Reason: Hydrocodone/Acetaminophen [[place] 5-325 mg Tablet] 1 tab PO Q4H PRN #10 tablet PRN Reason: Forms: Restricted Release, Return to Work Referrals: PAMELA LEVI MD [ACTIVE STAFF] - Follow up in 3-5 days
[2018-04-17] MEDS ORDERED: HYDROCODONE/ACETAMINOPHEN 5-325 MG (6 TAB/ER DISP) PO PRN (11:51)
--- NOTE | 2018-04-17 12:44 | RADIOLOGY REPORT (SQ) ---
EXAM DESCRIPTION: CERV SP 4 OR 5 VIEWS COMPLETED DATE/TIME: 04/17/2018 12:27 pm REASON FOR STUDY: sudden onset back pain after lifting heavy back COMPARISON: None. NUMBER OF VIEWS: Five views. TECHNIQUE: AP, lateral, obliques and odontoid radiographic images acquired of the cervical spine. LIMITATIONS: None. FINDINGS: MINERALIZATION: Normal. ALIGNMENT: Anatomic. VERTEBRAE: Vertebral bodies of normal height. DISCS: Marked degenerative disc disease C3-4 with osteophytes and disc space narrowing. FORAMINA: Large left-sided foraminal osteophytes C3-4. LATERAL AND POSTERIOR ELEMENTS: Facets, lateral masses and spinous processes without significant find ings. HARDWARE: None in the spine. SOFT TISSUES: No masses or calcifications. Lung apices clear. OTHER: No other significant finding. IMPRESSION: Degenerative changes predominantly at C3-4. TECHNICAL DOCUMENTATION: JOB ID: [id number] [employer]- All Rights Reserved Reading location - IP/workstation name: [email or web address]
[2018-04-17 14:54] VITALS: BP 88/59
== END 2018-04-17 13:15 | disposition home or self-care (01) ==
LOC: ER 09:23
DX: S46.812A Strain of other muscles, fascia and tendons at shoulder and upper arm level, left arm, initial encounter (principal); M54.12 Radiculopathy, cervical region; M54.2 Cervicalgia; G89.29 Other chronic pain; X50.0XXA Overexertion from strenuous movement or load, initial encounter; N18.5 Chronic kidney disease, stage 5; E11.9 Type 2 diabetes mellitus without complications; Z87.891 Personal history of nicotine dependence
CPT/HCPCS: 72050; 82962; 99284

== ENCOUNTER 2018-05-08 06:23 | Emergency (ER) | payer BC ==
--- NOTE | 2018-05-08 06:57 | ER Document Report ---
ED GI/ <NICHOLAS HANDY - Last Filed: 05/08/18 07:40> - General TRAVEL OUTSIDE OF THE [place] IN LAST 30 DAYS: No <MEGHNA MENDOZA - Last Filed: 05/08/18 08:01> - General Chief Complaint: Flank Pain Stated Complaint: FLANK PAIN Time Seen by Provider: 05/08/18 06:36 - Related Data Allergies/Adverse Reactions: No Known Allergies Allergy (Verified 02/17/16 18:00) Past Medical History - Social History Smoking Status: Never Smoker Chew tobacco use (# tins/day): No Frequency of alcohol use: None Drug Abuse: None Family History: Reviewed & Not Pertinent Patient has suicidal ideation: No Patient has homicidal ideation: No - Past Medical History Cardiac Medical History: Reports: Hx Hypertension Endocrine Medical History: Reports: Hx Diabetes Mellitus Type 1, Hx Diabetes Mellitus Type 2 Renal/ Medical History: Reports: Hx End Stage Renal Disease - stage 4. Denies : Hx Peritoneal Dialysis - Immunizations Hx Diphtheria, Pertussis, Tetanus Vaccination: No <MEGHNA MENDOZA - Last Filed: 05/08/18 08:01> Physical Exam <NICHOLAS HANDY - Last Filed: 05/08/18 07:40> <MEGHNA MENDOZA - Last Filed: 05/08/18 08:01> - Vital signs Vitals: Temp Pulse Resp BP Pulse Ox 97.5 F 86 16 126/79 H 99 05/08/18 06:30 05/08/18 06:30 05/08/18 06:30 05/08/18 06:30 05/08/18 06:30 - Notes Notes: 57-year-old male that presents to the emergency department today with complaints of right-sided flank pain. Patient mentions that he has stage IV kidney disease, not yet on dialysis, and has had a throbbing pain over his right kidney for years. Patient mentions that he was seeing Dr. Finn for around 7 years and she cut back on the amount of narcotic pain medications she was giving him in response to the opioid epidemic and he was upset by this and chose to leave her practice without having an established plan going forward. Patient states he has now found a new doctor who is unable to do any lab work until he gets his old records. Patient states he is here to have his kidney function checked. (MEGHNA MENDOZA) Course - Laboratory Result Diagrams: 05/08/18 07:00 05/08/18 07:00 <NICHOLAS HANDY - Last Filed: 05/08/18 07:40> - Laboratory Result Diagrams: 05/08/18 07:00 05/08/18 07:00 <MEGHNA MENDOZA - Last Filed: 05/08/18 08:01> - Vital Signs Vital signs: Temp Pulse Resp BP Pulse Ox 97.5 F 86 16 126/79 H 99 05/08/18 06:30 05/08/18 06:30 05/08/18 06:30 05/08/18 06:30 05/08/18 06:30 - Laboratory Laboratory results interpreted by me: 05/08/18 05/08/18 05/08/18 07:00 07:00 07:00 RBC 4.01 L Hgb 12.0 L Hct 34.2 L BUN 46 H Creatinine 3.50 H Est GFR ( Amer) 22 L Est GFR (Non-Af Amer) 18 L Glucose 269 H Urine Protein 100 H Urine Glucose (UA) >=500 H Urine Blood SMALL H Discharge <NICHOLAS HANDY - Last Filed: 05/08/18 07:40> <MEGHNA MENDOZA - Last Filed: 05/08/18 08:01> - Discharge Clinical Impression: Chronic renal insufficiency, stage IV (severe) Chronic low back pain Qualifiers: Back pain laterality: bilateral Sciatica presence: without sciatica Qualified Code(s): M54.5 - Low back pain Condition: Stable Disposition: HOME, SELF-CARE Additional Instructions: Take Tylenol for your chronic low back pain. Avoid NSAIDs such as Aleve and ibuprofen, as they will worsen your kidney function. Get plenty of rest when you can. Take the copies of your lab work with you to follow-up with your new primary care provider. RETURN TO THE EMERGENCY ROOM IF ANY NEW OR WORSENING SYMPTOMS. Chronic Back Pain: Chronic back pain (pain persisting longer than three months) is a common problem. A medical evaluation can look for herniated disc, arthritis, osteoporosis, tumors, and infections. But at least half the time, there's no obvious treatable cause. Anxiety and depression tend to worsen back pain. Ibuprofen or other anti-inflammatory medicine can help. A heating pad, used for 15-20 minutes at a time, can ease pain. For this type of back pain, narcotic medicines should be avoided. Muscle relaxers are rarely helpful unless you're having spasms. Activity is important. Find an aerobic exercise program that your back can tolerate. Too much rest makes back pain worse. Specific back exercises are usually prescribed to strengthen the back and abdominal muscles. Often, a physical therapist can help. Avoid heavy lifting, working while bent over, or standing with both knees straight. Most back pain patients do better with a firm mattress. If new symptoms of a "herniated disc" (radiation of pain, numbness, or tingling down the back of the leg or weakness in the leg) occur, you should be re-examined. Chronic Pain Control: We do not manage chronic pain in the Emergency Department. For on-going chronic pain that does not improve, you will need to see your private doctor or painting worker. We do not provide repeated medication management of chronic painful conditions. If you wish, we can provide the name of local pain management physicians. [place] Attestation: 05/08/18 07:44 I personally performed the services described in the documentation, reviewed and edited the documentation which was dictated to the scribe in my presence, and it accurately records my words and actions. (NICHOLAS HANDY) Scribe Documentation - Scribe Written by Verónica:: Verónica Reynolds, 05/08/2018 0801 acting as scribe for :: Tg <MEGHNA MENDOZA - Last Filed: 05/08/18 08:01>
[2018-05-08 07:25] LABS: ABSOLUTE BASOPHILS # (AUTO) 0.1 10^3/uL (0.0-0.2); ABSOLUTE EOSINOPHILS # (AUTO) 0.2 10^3/uL (0.0-0.6); ABSOLUTE LYMPHOCYTES (AUTO) 1.1 10^3/uL (0.5-4.7); ABSOLUTE MONOCYTES (AUTO) 0.5 10^3/uL (0.1-1.4); ABSOLUTE NEUT (AUTO) 3.2 10^3/uL (1.7-8.2); EOSINOPHILS % (AUTO) 4.6 % (0-6); HEMATOCRIT 34.2 % (37.9-51.0); LYMPHOCYTES % (AUTO) 20.7 % (13-45); MEAN CORPUSCULAR HEMOGLOBIN 29.9 pg (27.0-33.4); MEAN CORPUSCULAR VOLUME 85 fl (80-97); MONOCYTES % (AUTO) 10.4 % (3-13); PLATELET COUNT 231 10^3/uL (150-450); RED BLOOD COUNT 4.01 10^6/uL (4.35-5.55); RED CELL DISTRIBUTION WIDTH 13.6 % (11.5-14.0); SEGMENTED NEUTROPHILS % (AUTO) 62.3 % (42-78); TOTAL CELLS COUNTED % (AUTO) 100 %; WHITE BLOOD COUNT 5.1 10^3/uL (4.0-10.5)
[2018-05-08 07:26] LABS: APPEARANCE,URINE CLEAR; BILIRUBIN,URINE NEGATIVE (NEGATIVE); COLOR,URINE STRAW; GLUCOSE, URINE >=500 mg/dL (NEGATIVE); KETONES,URINE NEGATIVE (NEGATIVE); LEUKOCYTE ESTERASE,URINE NEGATIVE (NEGATIVE); NITRITE,URINE NEGATIVE (NEGATIVE); PROTEIN,URINE 100 mg/dL (NEGATIVE); URINE SPECIFIC GRAVITY 1.012; UROBILINOGEN,URINE NEGATIVE mg/dL (<2.0)
[2018-05-08 07:39] LABS: ALANINE AMINOTRANSFERASE 44 U/L (21-72); ALBUMIN 4.3 g/dL (3.5-5.0); ALKALINE PHOSPHATASE 94 U/L (38-126); ANION GAP 15 (5-19); ASPARTATE AMINO TRANSFERASE 29 U/L (17-59); BILIRUBIN,DIRECT 0.3 mg/dL (0.0-0.4); BILIRUBIN,TOTAL 0.9 mg/dL (0.2-1.3); BLOOD UREA NITROGEN 46 mg/dL (7-20); CALCIUM 9.2 mg/dL (8.4-10.2); CARBON DIOXIDE 26 mmol/L (22-30); CHLORIDE 99 mmol/L (98-107); GLUCOSE 269 mg/dL (75-110); POTASSIUM 3.8 mmol/L (3.6-5.0); SODIUM 140.1 mmol/L (137-145)
[2018-05-08 08:28] VITALS: BP 143/86
== END 2018-05-08 08:15 | disposition home or self-care (01) ==
LOC: ER 06:23
DX: E11.22 Type 2 diabetes mellitus with diabetic chronic kidney disease (principal); I12.9 Hypertensive chronic kidney disease with stage 1 through stage 4 chronic kidney disease, or unspecified chronic kidney disease; N18.4 Chronic kidney disease, stage 4 (severe); M54.5 Low back pain; R10.9 Unspecified abdominal pain
CPT/HCPCS: 36415; 80053; 81001; 83735; 84100; 85025; 99284

== ENCOUNTER 2018-05-18 06:51 | Emergency (ER) | payer BC ==
--- NOTE | 2018-05-18 07:01 | ER Document Report ---
ED Blood Sugar Problem - General Chief Complaint: Low Blood Sugar Stated Complaint: DIABETESE ISSUE Time Seen by Provider: 05/18/18 07:01 Mode of Arrival: Medic Information source: Patient Notes: 57-year-old male to the emergency department after not showing up for work. Patient has a history of severe hypoglycemia. Was checked on. Blood sugar obtained after he was unarousable. Initial blood sugar was 29. Patient on long -acting Lantus. Gets frequent hypoglycemic episodes. Denies any chest pain, shortness of breath, fever, chills or other cysts issues at this time. Received glucagon. Received amp of D50. Awake and alert and in no acute distress at time of presentation to the emergency department via EMS. TRAVEL OUTSIDE OF THE [place] IN LAST 30 DAYS: No - HPI Onset: Just prior to arrival Onset/Duration: Sudden Quality of pain: No pain Severity: Severe - Related Data Allergies/Adverse Reactions: No Known Allergies Allergy (Verified 02/17/16 18:00) Past Medical History - General Information source: Patient, [facility] Records - Social History Smoking Status: Never Smoker Cigarette use (# per day): No Frequency of alcohol use: Occasional Drug Abuse: None Lives with: Family Family History: Reviewed & Not Pertinent - Past Medical History Cardiac Medical History: Reports: Hx Hypertension Endocrine Medical History: Reports: Hx Diabetes Mellitus Type 1, Hx Diabetes Mellitus Type 2 Renal/ Medical History: Reports: Hx End Stage Renal Disease - stage 4. Denies : Hx Peritoneal Dialysis - Immunizations Hx Diphtheria, Pertussis, Tetanus Vaccination: No Review of Systems - Review of Systems Constitutional: denies: Fever, Malaise, Weakness EENT: denies: Blurred vision, Double vision, Difficulty swallowing Cardiovascular: denies: Chest pain, Palpitations, Heart racing Respiratory: denies: Cough, Hurts to breathe, Hemoptysis, Short of breath Gastrointestinal: denies: Abdominal pain, Diarrhea, Nausea, Vomiting Genitourinary: denies: Burning, Dysuria, Discharge Musculoskeletal: denies: Back pain, Joint pain, Joint swelling, Muscle pain Skin: denies: Dryness, Lesions, Lumps, Rash Neurological/Psychological: denies: Confusion, Weakness, Numbness Physical Exam - Vital signs Vitals: Temp 94.5 F L 05/18/18 07:01 Interpretation: Normal - General General appearance: Appears well, Alert - HEENT Head: Normocephalic, Atraumatic Eyes: Normal Pupils: PERRL - Respiratory Respiratory status: No respiratory distress Chest status: Nontender Breath sounds: Normal Chest palpation: Normal - Cardiovascular Rhythm: Regular Heart sounds: Normal auscultation Murmur: No - Abdominal Inspection: Normal Distension: No distension Bowel sounds: Normal Tenderness: Nontender Organomegaly: No organomegaly - Back Back: Normal, Nontender - Extremities General upper extremity: Normal inspection, Nontender, Normal color, Normal ROM , Normal temperature General lower extremity: Normal inspection, Nontender, Normal color, Normal ROM , Normal temperature, Normal weight bearing. No: Julissa's sign - Neurological Neuro grossly intact: Yes Cognition: Normal Orientation: AAOx4 Farrah Coma Scale Eye Opening: Spontaneous [place] Coma Scale Verbal: Oriented Farrah Coma Scale Motor: Obeys Commands [place] Coma Scale Total: 15 Speech: Normal Motor strength normal: LUE, RUE, LLE, RLE Sensory: Normal - Psychological Associated symptoms: Normal affect, Normal mood - Skin Skin Temperature: Warm Skin Moisture: Dry Skin Color: Normal Course - Re-evaluation Re-evalutation: 05/18/18 08:28 Patient has eaten. Patient is upright. Took himself off the monitor and wants to leave. At this time will do a repeat Accu-Chek and if within normal range will DC at patient's request. 05/18/18 08:35 Laboratory 05/18/18 05/18/18 07:05 07:05 WBC 6.4 RBC 3.93 L Hgb 11.8 L Hct 34.4 L MCV 87 MCH 30.0 MCHC 34.3 RDW 14.3 H Plt Count 191 Seg Neutrophils % 84.5 H Lymphocytes % 6.9 L Monocytes % 6.2 Eosinophils % 1.0 Basophils % 1.4 Absolute Neutrophils 5.4 Absolute Lymphocytes 0.4 L Absolute Monocytes 0.4 Absolute Eosinophils 0.1 Absolute Basophils 0.1 Sodium 144.1 Potassium 4.7 Chloride 106 Carbon Dioxide 24 Anion Gap 14 BUN 51 H Creatinine 2.55 H Est GFR ( Amer) 32 L Est GFR (Non-Af Amer) 26 L Glucose 201 H Calcium 8.9 Total Bilirubin 0.6 Direct Bilirubin 0.3 Neonat Total Bilirubin Not Reportable Neonat Direct Bilirubin Not Reportable Neonat Indirect Bili Not Reportable AST 34 ALT 55 Alkaline Phosphatase 75 Total Protein 6.6 Albumin 4.0 - Vital Signs Vital signs: Temp Pulse Resp BP Pulse Ox 94.5 F L 05/18/18 07:01 - Laboratory Result Diagrams: 05/18/18 07:05 05/18/18 07:05 Laboratory results interpreted by me: 05/18/18 05/18/18 07:05 07:05 RBC 3.93 L Hgb 11.8 L Hct 34.4 L RDW 14.3 H Seg Neutrophils % 84.5 H Lymphocytes % 6.9 L Absolute Lymphocytes 0.4 L BUN 51 H Creatinine 2.55 H Est GFR ( Amer) 32 L Est GFR (Non-Af Amer) 26 L Glucose 201 H Discharge - Discharge Clinical Impression: Hypoglycemia associated with diabetes Condition: Good Disposition: HOME, SELF-CARE Instructions: Hypoglycemia ([facility]) Additional Instructions: Make sure you are eating plenty of food while taking your insulin. Check your blood sugar regularly throughout the day. Follow-up with your regular doctor. Return for worsening symptoms or concerns. Referrals: MYRNA BREEN MD [Primary Care Provider] - Follow up as needed
[2018-05-18 07:18] LABS: ABSOLUTE BASOPHILS # (AUTO) 0.1 10^3/uL (0.0-0.2); ABSOLUTE EOSINOPHILS # (AUTO) 0.1 10^3/uL (0.0-0.6); ABSOLUTE LYMPHOCYTES (AUTO) 0.4 10^3/uL (0.5-4.7); ABSOLUTE MONOCYTES (AUTO) 0.4 10^3/uL (0.1-1.4); ABSOLUTE NEUT (AUTO) 5.4 10^3/uL (1.7-8.2); BASOPHILS % (AUTO) 1.4 % (0-2); HEMATOCRIT 34.4 % (37.9-51.0); HEMOGLOBIN 11.8 g/dL (13.5-17.0); LYMPHOCYTES % (AUTO) 6.9 % (13-45); MEAN CORPUSCULAR HGB CONC 34.3 g/dL (32.0-36.0); MEAN CORPUSCULAR VOLUME 87 fl (80-97); MONOCYTES % (AUTO) 6.2 % (3-13); PLATELET COUNT 191 10^3/uL (150-450); RED BLOOD COUNT 3.93 10^6/uL (4.35-5.55); RED CELL DISTRIBUTION WIDTH 14.3 % (11.5-14.0); SEGMENTED NEUTROPHILS % (AUTO) 84.5 % (42-78); TOTAL CELLS COUNTED % (AUTO) 100 %; WHITE BLOOD COUNT 6.4 10^3/uL (4.0-10.5)
[2018-05-18 07:34] LABS: ALANINE AMINOTRANSFERASE 55 U/L (21-72); ALKALINE PHOSPHATASE 75 U/L (38-126); ANION GAP 14 (5-19); ASPARTATE AMINO TRANSFERASE 34 U/L (17-59); BILIRUBIN,DIRECT 0.3 mg/dL (0.0-0.4); BILIRUBIN,TOTAL 0.6 mg/dL (0.2-1.3); BLOOD UREA NITROGEN 51 mg/dL (7-20); CALCIUM 8.9 mg/dL (8.4-10.2); CARBON DIOXIDE 24 mmol/L (22-30); CHLORIDE 106 mmol/L (98-107); GLUCOSE 201 mg/dL (75-110); POTASSIUM 4.7 mmol/L (3.6-5.0); SODIUM 144.1 mmol/L (137-145); TOTAL PROTEIN 6.6 g/dL (6.3-8.2)
[2018-05-18 08:46] VITALS: BP 178/82
--- NOTE | 2018-05-19 03:02 | EKG REPORT ---
SEVERITY:- BORDERLINE ECG - SINUS TACHYCARDIA PROBABLE LEFT ATRIAL ABNORMALITY BORDERLINE PROLONGED QT INTERVAL : Confirmed by: Marianne Martin MD 19-May-2018 03:02:02
== END 2018-05-18 08:44 | disposition home or self-care (01) ==
LOC: ER 06:51
DX: E11.649 Type 2 diabetes mellitus with hypoglycemia without coma (principal); I10 Essential (primary) hypertension; Z79.4 Long term (current) use of insulin
CPT/HCPCS: 36415; 80053; 82962; 85025; 93005; 93010; 99285

== ENCOUNTER 2018-05-19 11:07 | Emergency (ER) | payer BC ==
[2018-05-19] MEDS ORDERED: DEXTROSE 50%-WATER 25 GM/50 ML DISP.SYRIN IV ONE ×2 (11:16)
[2018-05-19] MEDS ORDERED: DEXTROSE 5%-NORMAL SALINE 1,000 ML IV ONE (11:24)
--- NOTE | 2018-05-19 11:32 | ER Document Report ---
ED Blood Sugar Problem - General Stated Complaint: BLOOD SUGAR ISSUE Time Seen by Provider: 05/19/18 11:15 Mode of Arrival: Ambulatory Information source: Patient TRAVEL OUTSIDE OF THE [place] IN LAST 30 DAYS: No - HPI Onset: This morning Onset/Duration: Gradual Quality of pain: No pain Associated symptoms: Confusion, Difficulty speaking, Sweating, Weakness Similar symptoms previously: Yes Recently seen / treated by doctor: Yes - YESTERDAY, SHAHIDA Hanks, SIMILAR PROB. - Related Data Allergies/Adverse Reactions: No Known Allergies Allergy (Verified 02/17/16 18:00) Past Medical History - General Information source: Patient - Social History Smoking Status: Never Smoker Cigarette use (# per day): No Chew tobacco use (# tins/day): No Frequency of alcohol use: None Drug Abuse: None Lives with: Family Family History: Reviewed & Not Pertinent Patient has suicidal ideation: No Patient has homicidal ideation: No - Past Medical History Cardiac Medical History: Reports: Hx Hypertension Pulmonary Medical History: Reports: None EENT Medical History: Reports: None Neurological Medical History: Reports: None Endocrine Medical History: Reports: Hx Diabetes Mellitus Type 1, Hx Diabetes Mellitus Type 2 Renal/ Medical History: Reports: Hx End Stage Renal Disease - stage 5. Denies : Hx Peritoneal Dialysis Malignancy Medical History: Reports None GI Medical History: Reports: None Musculoskeletal Medical History: Reports None Skin Medical History: Reports None Psychiatric Medical History: Reports: None - Immunizations Hx Diphtheria, Pertussis, Tetanus Vaccination: No Review of Systems - Review of Systems Constitutional: Diaphoresis, Weakness EENT: No symptoms reported Cardiovascular: No symptoms reported Respiratory: No symptoms reported Gastrointestinal: No symptoms reported Genitourinary: No symptoms reported Musculoskeletal: No symptoms reported Skin: No symptoms reported Neurological/Psychological: See HPI Physical Exam - Vital signs Vitals: Temp Pulse Resp BP Pulse Ox 97.4 F 74 18 142/76 H 99 05/19/18 11:43 05/19/18 11:43 05/19/18 11:43 05/19/18 11:43 05/19/18 11:43 Interpretation: Tachycardic - General General appearance: Lethargic In distress: None - HEENT Head: Normocephalic Eyes: Normal Conjunctiva: Normal Ears: Normal Nasal: Normal Mouth/Lips: Normal Mucous membranes: Normal Pharynx: Normal Neck: Normal - Respiratory Respiratory status: No respiratory distress Breath sounds: Normal - Cardiovascular Rhythm: Regular Heart sounds: Normal auscultation Murmur: No - Abdominal Inspection: Normal Distension: No distension - Extremities General upper extremity: Normal inspection General lower extremity: Normal inspection - Neurological Neuro grossly intact: Yes - INITIAL LETHARGY & CONFUSION RESOLVED W/ D50 Cognition: Normal Orientation: AAOx4 - Psychological Associated symptoms: Normal affect, Normal mood - Skin Skin Temperature: Warm Skin Moisture: Diaphoretic Skin Color: Normal Skin Turgor: Elastic Course - Vital Signs Vital signs: Temp Pulse Resp BP Pulse Ox 97.4 F 74 18 142/76 H 99 05/19/18 11:43 05/19/18 11:43 05/19/18 11:43 05/19/18 11:43 05/19/18 11:43 - Laboratory Result Diagrams: 05/19/18 11:22 05/19/18 11:22 Laboratory results interpreted by me: 05/19/18 05/19/18 05/19/18 11:22 11:22 11:50 RBC 4.08 L Hgb 12.2 L Hct 35.6 L RDW 14.1 H BUN 56 H Creatinine 2.88 H Est GFR ( Amer) 27 L Est GFR (Non-Af Amer) 23 L Glucose 26 L* AST 64 H Total Protein 8.3 H Urine Protein 100 H Urine Glucose (UA) 50 H Urine Blood SMALL H Discharge - Discharge Clinical Impression: Hypoglycemia associated with diabetes, Chronic renal disease, stage IV Condition: Stable Disposition: HOME, SELF-CARE Instructions: Hypoglycemia ([facility]) Additional Instructions: REDUCE YOUR DAILY DOSE OF LANTUS INSULIN TO 10 UNITS, CONTINUE THAT DOSE UNTIL YOU CAN FOLLOW UP WITH YOUR PRIMARY CARE PROVIDER. CONTINUE HUMALOG ACCORDING TO SLIDING SCALE, USUAL. CONTINUE YOUR RECOMMENDED DIABETIC DIET. FOLLOW UP WITH YOUR PRIMARY CARE PROVIDER , CALL SUNDAY FOR APPOINTMENT. RETURN TO E.R. IF PROBLEMS. Referrals: TONEY BREEN MD [COMMUNITY BASED STAFF] - Follow up tomorrow
[2018-05-19 11:33] LABS: ABSOLUTE EOSINOPHILS # (AUTO) 0.2 10^3/uL (0.0-0.6); ABSOLUTE LYMPHOCYTES (AUTO) 2.5 10^3/uL (0.5-4.7); ABSOLUTE MONOCYTES (AUTO) 0.7 10^3/uL (0.1-1.4); ABSOLUTE NEUT (AUTO) 4.3 10^3/uL (1.7-8.2); BASOPHILS % (AUTO) 0.6 % (0-2); HEMATOCRIT 35.6 % (37.9-51.0); HEMOGLOBIN 12.2 g/dL (13.5-17.0); LYMPHOCYTES % (AUTO) 32.7 % (13-45); MEAN CORPUSCULAR HEMOGLOBIN 29.8 pg (27.0-33.4); MEAN CORPUSCULAR HGB CONC 34.2 g/dL (32.0-36.0); MEAN CORPUSCULAR VOLUME 87 fl (80-97); MONOCYTES % (AUTO) 8.7 % (3-13); PLATELET COUNT 245 10^3/uL (150-450); RED BLOOD COUNT 4.08 10^6/uL (4.35-5.55); RED CELL DISTRIBUTION WIDTH 14.1 % (11.5-14.0); TOTAL CELLS COUNTED % (AUTO) 100 %; WHITE BLOOD COUNT 7.8 10^3/uL (4.0-10.5)
[2018-05-19 11:44] VITALS: BP 142/76
[2018-05-19 12:00] LABS: ALANINE AMINOTRANSFERASE 53 U/L (21-72); ALBUMIN 4.9 g/dL (3.5-5.0); ALKALINE PHOSPHATASE 82 U/L (38-126); ANION GAP 14 (5-19); ASPARTATE AMINO TRANSFERASE 64 U/L (17-59); BILIRUBIN,DIRECT 0.4 mg/dL (0.0-0.4); BILIRUBIN,TOTAL 1.3 mg/dL (0.2-1.3); BLOOD UREA NITROGEN 56 mg/dL (7-20); CALCIUM 9.2 mg/dL (8.4-10.2); CARBON DIOXIDE 26 mmol/L (22-30); CHLORIDE 104 mmol/L (98-107); POTASSIUM 4.5 mmol/L (3.6-5.0); TOTAL PROTEIN 8.3 g/dL (6.3-8.2)
[2018-05-19 12:09] LABS: GLUCOSE 26 mg/dL (75-110)
[2018-05-19 12:22] LABS: APPEARANCE,URINE SLIGHTLY-CLOUDY; BILIRUBIN,URINE NEGATIVE (NEGATIVE); COLOR,URINE YELLOW; GLUCOSE, URINE 50 mg/dL (NEGATIVE); KETONES,URINE NEGATIVE (NEGATIVE); LEUKOCYTE ESTERASE,URINE NEGATIVE (NEGATIVE); NITRITE,URINE NEGATIVE (NEGATIVE); PROTEIN,URINE 100 mg/dL (NEGATIVE); URINE SPECIFIC GRAVITY 1.015; UROBILINOGEN,URINE NEGATIVE mg/dL (<2.0)
== END 2018-05-19 12:58 | disposition home or self-care (01) ==
LOC: ER 11:07
DX: E11.649 Type 2 diabetes mellitus with hypoglycemia without coma (principal); E11.22 Type 2 diabetes mellitus with diabetic chronic kidney disease; I12.9 Hypertensive chronic kidney disease with stage 1 through stage 4 chronic kidney disease, or unspecified chronic kidney disease; N18.4 Chronic kidney disease, stage 4 (severe); R41.0 Disorientation, unspecified; R61 Generalized hyperhidrosis; R53.1 Weakness; R53.83 Other fatigue
CPT/HCPCS: 99285; 96361; 96374; 36415; 82962; 85025; 80053; 81001; 83036; J3490

== ENCOUNTER 2018-07-10 20:20 | Emergency (ER) | payer SELFPAY ==
[2018-07-10] MEDS ORDERED: DEXTROSE 5%-1/2 NORMAL SALINE 500 ML IV ONE (20:38)
[2018-07-10] MEDS ORDERED: CEPHALEXIN 500 MG CAPSULE PO ONE (20:54)
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
[2018-07-10 21:05] LABS: ABSOLUTE BASOPHILS # (AUTO) 0.1 10^3/uL (0.0-0.2); ABSOLUTE LYMPHOCYTES (AUTO) 0.5 10^3/uL (0.5-4.7); ABSOLUTE MONOCYTES (AUTO) 0.4 10^3/uL (0.1-1.4); ABSOLUTE NEUT (AUTO) 6.1 10^3/uL (1.7-8.2); BASOPHILS % (AUTO) 0.8 % (0-2); EOSINOPHILS % (AUTO) 0.1 % (0-6); HEMATOCRIT 33.7 % (37.9-51.0); HEMOGLOBIN 11.5 g/dL (13.5-17.0); LYMPHOCYTES % (AUTO) 7.1 % (13-45); MEAN CORPUSCULAR HEMOGLOBIN 29.6 pg (27.0-33.4); MEAN CORPUSCULAR HGB CONC 34.3 g/dL (32.0-36.0); MEAN CORPUSCULAR VOLUME 86 fl (80-97); PLATELET COUNT 179 10^3/uL (150-450); TOTAL CELLS COUNTED % (AUTO) 100 %; WHITE BLOOD COUNT 7.1 10^3/uL (4.0-10.5)
[2018-07-10] MEDS ORDERED: OXYCODONE-ACETAMINOPHEN 5-325 MG TABLET PO ONE (21:11)
[2018-07-10 21:23] LABS: ANION GAP 10 (5-19); BLOOD UREA NITROGEN 50 mg/dL (7-20); CALCIUM 9.6 mg/dL (8.4-10.2); CARBON DIOXIDE 27 mmol/L (22-30); CHLORIDE 101 mmol/L (98-107); GLUCOSE 93 mg/dL (75-110); POTASSIUM 5.3 mmol/L (3.6-5.0); SODIUM 137.9 mmol/L (137-145)
[2018-07-10] MEDS ORDERED: SODIUM POLYSTYRENE SULFONATE 15 GM/60 ML PO ONE (22:01)
--- NOTE | 2018-07-10 22:20 | RADIOLOGY REPORT (SQ) ---
EXAM DESCRIPTION: XR RIBS UNILATERAL WITH CHEST COMPLETED DATE/TME: 07/10/2018 20:39 CLINICAL HISTORY: 58 years, Male, RIGHT RIB PAIN, INJURY COMPARISON: EXAM DESCRIPTION: CLINICAL HISTORY: RIGHT RIB PAIN, INJURY COMPARISON: None FINDINGS: Five view(s) submitted. Density over the left mid hemithorax is likely a nipple shadow. There are chronic appearing right rib fractures. No definite acute fracture. No acute fracture or dislocation is identified. Bone marrow attenuation is unremarkable. No radiopaque foreign body is identified. IMPRESSION: No acute fracture or dislocation.
[2018-07-10 22:51] VITALS: BP 135/78
== END 2018-07-10 22:52 | disposition home or self-care (01) ==
LOC: ER 20:20
DX: E11.649 Type 2 diabetes mellitus with hypoglycemia without coma (principal); Z79.4 Long term (current) use of insulin; L03.116 Cellulitis of left lower limb
CPT/HCPCS: 36415; 80048; 82962; 85025; 96360; 96361; 99285